=== PATIENT | male | born 1985 | race African-American/Black ===

== ENCOUNTER 2018-02-21 20:05 | Inpatient (IN) | payer OTHER ==
[~2018-02-21] VITALS: Ht 180.3 cm; Wt 191.0 kg
[~2018-02-21 20:05] MED LIST: AMLO10TA2 PO; CARV25TA; FURO1TAB60 PO; NALOXONE HCL 0.4 MG/ML AMP IV PUSH PRN; SODIUM CHLORIDE 0.9% FLUSH 10 ML FLUSH IV FLUSH PRN
[2018-02-21] MEDS: SODIUM CHLORIDE 0.9% FLUSH 10 ML FLUSH IV FLUSH SCH (20:48)
[2018-02-21 21:00] VITALS: BP 163/110; PULSE 103; RESP 21; TEMP 98.3; O2SAT 95
[2018-02-21] MEDS ORDERED: RESP: ALBUTEROL 2.5 MG/IPRATROPIUM 0.5 MG NEB (PRN) NEB (21:15)
[2018-02-21 22:00] VITALS: PULSE 104
[2018-02-21] MEDS ORDERED: AZITHROMYCIN INJ 500 MG in SODIUM CHLOR 0.9% 250 ML INJ 250 ML IV SCH (22:00)
[2018-02-21] MEDS ORDERED: cefTRIAXone INJ 1,000 MG in SODIUM CHLORIDE 0.9% INJ 100 ML IV SCH (23:00)
[2018-02-21] MEDS ORDERED: NITROGLYCERIN 0.4 MG SL 25 TABS/BTL SL PRN (23:30)
[2018-02-21] MEDS: RESP: ALBUTEROL 2.5 MG/IPRATROPIUM 0.5 MG NEB (SCH) NEB (23:30)
[2018-02-21] MEDS ORDERED: guaiFENesin/DEXTROMETHORPHAN 200 MG/20 MG/10 ML CUP PO PRN (23:30)
[2018-02-21] MEDS ORDERED: MORPHINE SULFATE 2 MG/ML SYRINGE IV PUSH PRN (23:30)
[2018-02-21] MEDS ORDERED: POTASSIUM CHLORIDE 20 MEQ CONTROLLED RELEASE TAB PO ONE (23:30)
--- NOTE | 2018-02-21 23:31 | HHI.HP ---
[facility] No Primary Care Physician Admission Diagnosis Bilateral pneumonia and mild CHF exacerbation Diagnoses: (1) Bilateral pneumonia (2) Acute CHF (3) Hypokalemia Chief Complaint: Progressively worsening shortness of breath and chest pain Travel History International Travel<30 Days: No Contact w/Intl Traveler <30 Da: No History of Present Illness Mr. Hardy is a pleasant 32-year-old male with a history of hypertension and congestive heart failure who presented to the emergency room and [place] complaining of shortness of breath. Chest x-ray showed bilateral lung opacities with moderate to severe cardiomegaly and the patient was treated for congestive heart failure and transferred to [facility] for hospitalist admission and medical management. Upon personal review of chest x- ray with Dr. Lombardo, we feel it is highly suspicious for bilateral pneumonia. The patient is seen in his hospital room. He describes a history of cold symptoms for the past 3 days accompanied with tactile fever on day 1. He reports he has been having a severe cough with thick yellow sputum production. He has orthopnea with inability to breathe when laying flat. He has had inability to sleep for the past 3 nights. He has had intermittent nasal congestion. He is also complaining of intermittent chest pressure that is located in the center of his chest and accompanied by diaphoresis and shortness of breath. He denies any associated nausea, vomiting, or palpitations. The chest pain starts with ambulation and usually resolves with rest. Review of Systems Except as stated in HPI: all other systems reviewed are Neg Past Family Social History Past Medical History Hypertension Congestive heart failure with last echocardiogram done by Dr. Garcia his outpatient mechanical designer about 2-3 months ago Denies diabetes mellitus, coronary artery disease, atrial fibrillation, COPD, asthma, liver problems, kidney problems, DVT, PE, CVA, seizures, thyroid dysfunction .. Past Surgical History Denies ever having surgery . Reported Medications Reported Meds & Active Scripts Active Reported Carvedilol 25 Mg Tab 25 Mg BID Lasix (Furosemide) 40 Mg Tab 40 Mg PO DAILY Amlodipine (Amlodipine Besylate) 10 Mg Tab 10 Mg PO DAILY , Allergies: Coded Allergies: No Known Allergies (Unverified , 02/21/18) Family History Multiple family members with hypertension, no family members with heart problems . Social History Tobacco: Quit smoking in 2010 but only smoked for about 2-3 years occasionally and socially Alcohol: Denies Illicit Drugs: Denies . Physical Exam Vital Signs Vital Signs Date Time Temp Pulse Resp B/P (MAP) Pulse Ox O2 Delivery O2 Flow Rate FiO2 02/21/18 21:00 98.3 103 21 163/110 (127) 95 Physical Exam CONSTITUTIONAL: This is a morbidly obese male patient, in no acute distress. INTEGUMENTARY: No rashes, ecchymoses or lesions. Cool and dry. HEAD: Atraumatic. Normocephalic. EYES: No scleral icterus. No injection or drainage. ENT: Nose without bleeding, purulent drainage. NECK: Trachea midline. No JVD or lymphadenopathy. CARDIOVASCULAR: Regular rate and rhythm with S3 gallop without murmurs or rubs. RESPIRATORY: Right lung sounds with diminished air exchange, left lower lobe diminished as well. No wheezes, rales, or rhonchi. The patient is not using any accessory muscles for breathing. GASTROINTESTINAL: Abdomen soft, non-tender, nondistended. No guarding. MUSCULOSKELETAL: Extremities without clubbing, cyanosis, or edema. No calf tenderness. NEUROLOGICAL: Awake and alert. Motor and sensory grossly within normal limits. Normal speech. . Laboratory Laboratory Tests Test 02/21/18 15:00 02/21/18 15:10 Blood Gas Puncture Site RT RADIAL Blood Gas HCO3 27 mmol/L Bedside Blood Gas Base Excess (LAB) 3.0 mmol/L Blood Gas Oxygen Saturation 94 % Arterial Blood pH 7.44 Arterial Blood Partial Pressure CO2 40 mmHG Arterial Blood Partial Pressure O2 70 mmHG Arterial Blood Oxygen Content 28.0 Vol % Oxygen Delivery Device NASAL CANNULA Blood Gas Liter Flow 2 L/M White Blood Count 12.7 TH/MM3 Red Blood Count 4.75 MIL/MM3 Hemoglobin 12.2 GM/DL Hematocrit 37.8 % Mean Corpuscular Volume 79.6 FL Mean Corpuscular Hemoglobin 25.7 PG Mean Corpuscular Hemoglobin Concent 32.3 % Red Cell Distribution Width 15.1 % Platelet Count 376 TH/MM3 Mean Platelet Volume 11.2 FL Immature Granulocyte % (Auto) 0.6 % Neutrophils (%) (Auto) 79.3 % Lymphocytes (%) (Auto) 13.9 % Monocytes (%) (Auto) 5.1 % Eosinophils (%) (Auto) 0.8 % Basophils (%) (Auto) 0.3 % Immature Granulocyte # (Auto) 0.1 TH/MM3 Neutrophils # (Auto) 10.1 TH/MM3 Lymphocytes # (Auto) 1.8 TH/MM3 Monocytes # (Auto) 0.7 TH/MM3 Eosinophils # (Auto) 0.1 TH/MM3 Basophils # (Auto) 0.0 TH/MM3 CBC Comment DIFF FINAL Differential Comment Prothrombin Time 12.1 SEC Prothromb Time International Ratio 1.2 RATIO Activated Partial Thromboplast Time 24.7 SEC Blood Urea Nitrogen 12 MG/DL Creatinine 1.00 MG/DL Random Glucose 119 MG/DL Total Protein 7.5 GM/DL Albumin 3.5 GM/DL Calcium Level 8.6 MG/DL Magnesium Level 1.9 MG/DL Alkaline Phosphatase 80 U/L Aspartate Amino Transf (AST/SGOT) 19 U/L Alanine Aminotransferase (ALT/SGPT) 17 U/L Total Bilirubin 2.3 MG/DL Sodium Level 141 MEQ/L Potassium Level 3.0 MEQ/L Chloride Level 106 MEQ/L Carbon Dioxide Level 27.0 MEQ/L Anion Gap 8 MEQ/L Estimat Glomerular Filtration Rate 106 ML/MIN Total Creatine Kinase 256 U/L Creatine Kinase MB 2.0 NG/ML Troponin I LESS THAN 0.02 NG/ML B-Type Natriuretic Peptide 382 PG/ML . Imaging Last Impressions Chest X-Ray 02/21/18 1441 Signed Impressions: Service Date/Time: February 16:29 - CONCLUSION: Moderately severe cardiomegaly. Diffuse airspace opacities throughout the right lung and in the left lower lung. Bertram Cannon MD . Caprini VTE Risk Assessment Caprini VTE Risk Assessment: No/Low Risk (score <= 1) Caprini Risk Assessment Model Point Value = 1 Point Value = 2 Point Value = 3 Point Value = 5 Age 41-60 Minor surgery BMI > 25 kg/m2 Swollen legs Varicose veins or History of unexplained or recurrent spontaneous Oral contraceptives or hormone replacement Sepsis (< 1 month) Serious lung disease, including pneumonia (< 1 month) Abnormal pulmonary function Acute myocardial infarction Congestive heart failure (< 1 month) History of inflammatory bowel disease Medical patient at bed rest Age 61-74 Arthroscopic surgery Major open surgery (> 45 min) Laparoscopic surgery (> 45 min) Malignancy Confined to bed (> 72 hours) Immobilizing plaster cast Central venous access Age >= 75 History of VTE Family history of VTE Factor V Leiden Prothrombin [id number] Lupus anticoagulant Anticardiolipin antibodies Elevated serum homocysteine Heparin-induced thrombocytopenia Other congenital or acquired thrombophilia Stroke (< 1 month) Elective arthroplasty Hip, pelvis, or leg fracture Acute spinal cord injury (< 1 month) Prophylaxis Regimen Total Risk Factor Score Risk Level Prophylaxis Regimen 0-1 Low Early ambulation 2 Moderate Order ONE of the following: *Sequential Compression Device (SCD) *Heparin 5000 units SQ BID 3-4 Higher Order ONE of the following medications: *Heparin 5000 units SQ TID *Enoxaparin/Lovenox 40 mg SQ daily (WT < 150 kg, CrCl > 30 mL/min) *Enoxaparin/Lovenox 30 mg SQ daily (WT < 150 kg, CrCl > 10-29 mL/min) *Enoxaparin/Lovenox 30 mg SQ BID (WT < 150 kg, CrCl > 30 mL/min) AND/OR *Sequential Compression Device (SCD) 5 or more Highest Order ONE of the following medications: *Heparin 5000 units SQ TID (Preferred with Epidurals) *Enoxaparin/Lovenox 40 mg SQ daily (WT < 150 kg, CrCl > 30 mL/min) *Enoxaparin/Lovenox 30 mg SQ daily (WT < 150 kg, CrCl > 10-29 mL/min) *Enoxaparin/Lovenox 30 mg SQ BID (WT < 150 kg, CrCl > 30 mL/min) AND *Sequential Compression Device (SCD) Assessment and Plan Assessment and Plan Bilateral pneumonia -Antibiotics: Azithromycin IV and ceftriaxone IV -Duo nebulizers every 6 hours ATC and every 4 hours as needed for shortness of breath and wheezing -Leukocytosis with left shift -repeat CBC and monitor Atypical chest pain -Serial cardiac enzymes and EKGs to rule out ACS -Nitroglycerin 0.4 mg sublingual every 5 minutes as needed chest pain 3 doses Congestive heart failure, mild exacerbation -BNP 382, chest x-ray looks more consistent with pneumonia than congestive heart failure but with elevation in BNP, symptoms of orthopnea and chest pain, and history of CHF with moderately severe cardiomegaly -will also treat for CHF -Lasix 20 mg IV twice daily Hypokalemia -Initial potassium was 3.0, replaced p.o. and [place] with 40 mEq by mouth -We will give additional 40 mEq by mouth given Lasix administered in [place] also -Potassium 10 mEq p.o. twice daily -Repeat BMP in a.m. and follow potassium results supplement as needed Hypertension -Resume home medications -Monitor trends in blood pressure and adjust treatments accordingly Hyperbilirubinemia -Initial total bilirubin 2.3 -We will repeat in a.m. -if remains elevated, patient may need outpatient follow -up for gallbladder imaging Mild anemia; microcytic and hypochromic -Initial hemoglobin 12.2 and hematocrit 37.8 -We will check iron profile and monitor CBC DVT prophylaxis -Heparin 5000 units subq every 12 hours . Discussed Condition With Patient, RN, and Dr. Lombardo . Physician Certification 2 Midnight Certification Type: Admission for Inpatient Services Order for Inpatient Services The services are ordered in accordance with Medicare regulations or non- Medicare payer requirements, as applicable. In the case of services not specified as inpatient-only, they are appropriately provided as inpatient services in accordance with the 2-midnight benchmark. Estimated LOS (days): 3 days is the estimated time the patient will need to remain in the hospital, assuming treatment plan goals are met and no additional complications. Post-Hospital Plan: Home Ivett Garcia Feb 21, 2018 23:31
[2018-02-21] MEDS ORDERED: ACETAMINOPHEN 325 MG TAB PO ONE (23:45)
[2018-02-21 23:51] VITALS: PULSE 110
[2018-02-22] VITALS (7 sets, daily range): BP systolic 115–182; BP diastolic 72–104; PULSE 86–106; RESP 18–21; TEMP 97.5–98.8; O2SAT 93–99
[2018-02-22] MEDS: CARVEDILOL 12.5 MG TAB PO SCH ×2 (00:19→09:23)
[2018-02-22] MEDS: RESP: ALBUTEROL 2.5 MG/IPRATROPIUM 0.5 MG NEB (SCH) NEB ×2 (02:11→08:25)
[2018-02-22 03:44] LABS: % SATURATION IRON PROFILE 6.7 % (20-50); BICARBONATE 28.3 MEQ/L (21.0-32.0); BLOOD UREA NITROGEN 12 MG/DL (7-18); CALCIUM 8.1 MG/DL (8.5-10.1); CHLORIDE 105 MEQ/L (98-107); CREATININE 1.03 MG/DL (0.60-1.30); GLOMERULAR FILTRATION RATE 103 ML/MIN (>89); GLUCOSE,RANDOM 136 MG/DL (74-106); IRON (FE) 26 MCG/DL (65-175); SODIUM (NA) 140 MEQ/L (136-145); TOTAL IRON BINDING CAPACITY 388 MCG/DL (250-450)
[2018-02-22 03:48] LABS: TROPONIN I 0.02 NG/ML (0.02-0.05)
--- NOTE | 2018-02-22 05:31 | EKG ---
Date Performed: 02/21/2018 Time Performed: 21:30:31 PTAGE: 32 years EKG: SINUS TACHYCARDIA. NONSPECIFIC INTRAVENTRICULAR CONDUCTION DELAY POOR R WAVE PROGRESSION HI GH LATERAL ST/T ABNORMALITY, CONSIDER ISCHEMIA LEFT AXIS DEVIATION ABNORMAL ECG NO PREVIOUS TRACING DOCTOR: Jez Ricketts Interpretating Date/Time 02/22/2018 05:29:42
[2018-02-22] MEDS ORDERED: POTASSIUM CHLORIDE 10 MEQ CONTROLLED RELEASE TAB PO ONE (08:15)
--- NOTE | 2018-02-22 08:47 | EKG ---
Date Performed: 02/22/2018 Time Performed: 03:12:40 PTAGE: 32 years EKG: Sinus rhythm Possible left atrial abnormality Lateral T wave changes may be due to myocardial ischemia Nonspecifi c intraventricular conduction delay Abnormal ECG PREVIOUS TRACING : 02/21/2018 21.30 No significant change from previous tracing noted. DOCTOR: Jez Ricketts Interpretating Date/Time 02/22/2018 08:45:46
[2018-02-22] MEDS: SODIUM CHLORIDE 0.9% FLUSH 10 ML FLUSH IV FLUSH SCH (09:00)
[2018-02-22] MEDS ORDERED: POTASSIUM CHLORIDE 10 MEQ CONTROLLED RELEASE TAB PO SCH (09:00)
[2018-02-22] MEDS ORDERED: POTASSIUM CHLORIDE 20 MEQ CONTROLLED RELEASE TAB PO SCH (09:00)
[2018-02-22] MEDS ORDERED: HEPARIN SODIUM - SQ 10,000 UNITS/ML VIAL SQ SCH (09:00)
[2018-02-22] MEDS ORDERED: FUROSEMIDE 40 MG/4 ML VIAL IV PUSH SCH (09:00)
[2018-02-22] MEDS ORDERED: FUROSEMIDE 20 MG/2 ML VIAL IV PUSH SCH (09:00)
[2018-02-22] MEDS ORDERED: FURO1TAB62 PO (10:37)
[2018-02-22] MEDS ORDERED: LEVA750T9 PO (10:37)
[2018-02-22] MEDS ORDERED: VENTAER INH (10:37)
[2018-02-22] MEDS ORDERED: LACTTAB8 PO (10:37)
[2018-02-22] MEDS ORDERED: NORC5TAB PO (10:37)
--- NOTE | 2018-02-22 13:30 | ECHRPT ---
Indication: CHF CONCLUSIONS The left ventricular systolic function is severely reduced with an estimated ejection fraction less than 20%. Severely dilated left ventricle. Mild concentric left ventricular hypertrophy. The right ventricle is mildly dilated. The left atrial size is moderately dilated. Moderate thickening of the mitral valve leaflets. Moderate mitral valve regurgitation. There is moderate tricuspid regurgitation. The estimated pulmonary arterial pressure is 47.5 mmHg. Moderate pulmonary valve regurgitation. There is a small pericardial effusion present. BP: / HR: 89 Rhythm: Sinus MEASUREMENTS (Male / Female) Normal Values Technical Quality:Technically difficult study 2D ECHO LV Diastolic Diameter PLAX 7.8 cm 4.2 - 5.9 / 3.9 - 5.3 cm LV Systolic Diameter PLAX 7.1 cm IVS Diastolic Thickness 1.1 cm 0.6 - 1.0 / 0.6 - 0.9 cm LVPW Diastolic Thickness 1.1 cm 0.6 - 1.0 / 0.6 - 0.9 cm LV Relative Wall Thickness 0.3 RV Internal Dim ED PLAX 4.2 cm LVOT Diameter 2.7 cm LA Systolic Diameter LX 5.3 cm 3.0 - 4.0 / 2.7 - 3.8 cm M-MODE Aortic Root Diameter MM 3.4 cm LA Systolic Diameter MM 5.1 cm LA Ao Ratio MM 1.5 MV E Point Septal Separation 3.2 cm AV Cusp Separation MM 2.4 cm DOPPLER AV Peak Velocity 68.2 cm/s AV Peak Gradient 1.9 mmHg LVOT Peak Velocity 62.2 cm/s LVOT Peak Gradient 1.5 mmHg AV Area Cont Eq pk 5.2 cm MV Area PHT 5.2 cm Mitral E Point Velocity 109.0 cm/s Mitral A Point Velocity 44.4 cm/s Mitral E to A Ratio 2.5 LV E' Lateral Velocity 11.3 cm/s Mitral E to LV E' Lateral Ratio 9.6 TR Peak Velocity 306.0 cm/s TR Peak Gradient 37.5 mmHg Right Atrial Pressure 10.0 mmHg Pulmonary Artery Systolic Pressu 47.5 mmHg Right Ventricular Systolic Press 47.5 mmHg FINDINGS LEFT VENTRICLE The left ventricular systolic function is severely reduced with an estimated ejection fraction less than 20%. Severely dilated left ventricle. Mild concentric left ventricular hypertrophy. RIGHT VENTRICLE The right ventricle is mildly dilated. LEFT ATRIUM The left atrial size is moderately dilated. RIGHT ATRIUM The right atrial size is normal. ATRIAL SEPTUM Normal atrial septal thickness without atrial level shunting by limited color doppler interrogation. AORTA The aortic root and proximal ascending aorta are normal in size on limited imaging. MITRAL VALVE Moderate thickening of the mitral valve leaflets. Moderate mitral valve regurgitation. AORTIC VALVE Trileaflet aortic valve. No aortic valve stenosis or regurgitation. TRICUSPID VALVE Structurally normal tricuspid valve. There is moderate tricuspid regurgitation. The estimated pulmonary arterial pressure is 47.5 mmHg. PULMONARY VALVE Moderate pulmonary valve regurgitation. VESSELS The inferior vena cava is dilated. PERICARDIUM There is a small pericardial effusion present. Donell Wells MD, FACC (Electronically Signed) Final Date:22 February 2018 13:30
[2018-02-22 13:46] LABS: AUTOMATED NEUTROPHIL # 8.7 TH/MM3 (1.8-7.7); BASOPHIL # 0.1 TH/MM3 (0-0.2); BASOPHIL % 0.5 % (0.0-2.0); EOSINOPHIL # 0.1 TH/MM3 (0-0.4); EOSINOPHIL % 0.9 % (0.0-4.0); HEMATOCRIT 37.4 % (39.0-51.0); HEMOGLOBIN 12.2 GM/DL (13.0-17.0); LYMPH % 18.6 % (9.0-44.0); LYMPHOCYTE # 2.2 TH/MM3 (1.0-4.8); MEAN CORPUSCULAR HEMOGLOBIN 25.8 PG (27.0-34.0); MEAN CORPUSCULAR HGB CONC 32.6 % (32.0-36.0); MEAN PLATELET VOLUME 8.8 FL (7.0-11.0); MONO % 4.7 % (0.0-8.0); MONOCYTE # 0.5 TH/MM3 (0-0.9); NEUT % 75.3 % (16.0-70.0); PLATELET COUNT 327 TH/MM3 (150-450); RED BLOOD COUNT 4.74 MIL/MM3 (4.50-5.90); RED CELL DISTRIBUTION WIDTH 16.5 % (11.6-17.2); WHITE BLOOD COUNT 11.6 TH/MM3 (4.0-11.0)
[2018-02-22 14:15] LABS: TROPONIN I LESS THAN 0.02 NG/ML (0.02-0.05)
--- NOTE | 2018-02-22 14:39 | HHI.DS ---
Discharge Summary Admission Date Feb 21, 2018 at 20:15 Discharge Date: Feb 22, 2018 Admitting Diagnosis Bilateral pneumonia and mild CHF exacerbation (1) Bilateral pneumonia ICD Code: J18.9 - Pneumonia, unspecified organism Diagnosis: Principal (2) Acute CHF ICD Code: I50.9 - Heart failure, unspecified Diagnosis: Principal Status: Acute (3) Hypokalemia ICD Code: E87.6 - Hypokalemia Diagnosis: Secondary Status: Acute Procedures None Brief History - From Admission Mr. Hardy is a pleasant 32-year-old male with a history of hypertension and congestive heart failure who presented to the emergency room and [place] complaining of shortness of breath. Chest x-ray showed bilateral lung opacities with moderate to severe cardiomegaly and the patient was treated for congestive heart failure and transferred to [facility] for hospitalist admission and medical management. Upon personal review of chest x- ray with Dr. Lombardo, we feel it is highly suspicious for bilateral pneumonia. The patient is seen in his hospital room. He describes a history of cold symptoms for the past 3 days accompanied with tactile fever on day 1. He reports he has been having a severe cough with thick yellow sputum production. He has orthopnea with inability to breathe when laying flat. He has had inability to sleep for the past 3 nights. He has had intermittent nasal congestion. He is also complaining of intermittent chest pressure that is located in the center of his chest and accompanied by diaphoresis and shortness of breath. He denies any associated nausea, vomiting, or palpitations. The chest pain starts with ambulation and usually resolves with rest. CBC/BMP: 02/22/18 1217 02/22/18 0309 Significant Findings Laboratory Tests Test 02/22/18 03:09 02/22/18 12:17 Random Glucose 136 MG/DL (74-106) Calcium Level 8.1 MG/DL (8.5-10.1) Potassium Level 3.1 MEQ/L (3.5-5.1) Iron Level 26 MCG/DL (65-175) Percent Iron Saturation 6.7 % (20-50) White Blood Count 11.6 TH/MM3 (4.0-11.0) Hemoglobin 12.2 GM/DL (13.0-17.0) Hematocrit 37.4 % (39.0-51.0) Mean Corpuscular Volume 79.0 FL (80.0-100.0) Mean Corpuscular Hemoglobin 25.8 PG (27.0-34.0) Neutrophils (%) (Auto) 75.3 % (16.0-70.0) Neutrophils # (Auto) 8.7 TH/MM3 (1.8-7.7) Troponin I LESS THAN 0.02 NG/ML Hospital Course Mr. Hardy is a 32-year-old male. He has underlying cardiomyopathy with CHF. He was admitted secondary to respiratory distress which was found to be related to bilateral pneumonia and congestive heart failure exacerbation. CHF exacerbation was easily controlled overnight with additional diuretics. Patient 's respiratory status is improved, he is no longer hypoxic. The pneumonia acted as a trigger for his CHF exacerbation. She is discharged on antibiotics and an additional Lasix dosing over the next 3 days. Medically stable for discharge home today. Pt Condition on Discharge: Stable Discharge Disposition: Discharge Home Discharge Time: <= 30 minutes Discharge Instructions DIET: Follow Instructions for: Heart Healthy Diet Activities you can perform: Regular-No Restrictions Follow up Referrals: Cardiology - 2 Weeks Cardiology PCP Follow-up - 2 Weeks PCP Follow-up @ [facility] New Medications: Albuterol 18 GM Inh (Ventolin Hfa 18 GM Inh) 90 Mcg/Act Aer 2 PUFF INH Q4H PRN for SHORTNESS OF BREATH, #1 INHALER 0 Refills Furosemide (Lasix) 20 Mg Tab 20 MG PO DAILY PRN for Fluid Excess, #30 TAB 0 Refills Use this Daily till 02/26/18 Then use this as needed, for any fluid excess. Hydrocodone-Acetaminophen ([place]) 5 Mg-325 Mg Tab 1 TAB PO Q6H PRN for PAIN, #30 TAB 0 Refills Lactobacillus Acidophilus (Lactobacillus Acidophilus) 1 Billion Cell Tab 1 TAB PO TIDAC for Nutritional Supplement, #30 TAB 0 Refills Levofloxacin (Levaquin) 750 Mg Tablet 750 MG PO DAILY for Infection, #7 TAB 0 Refills Continued Medications: Amlodipine (Amlodipine) 10 Mg Tab 10 MG PO DAILY for Blood Pressure Management, #30 TAB 0 Refills Carvedilol (Carvedilol) 25 Mg Tab 25 MG BID, #60 TAB 0 Refills Furosemide (Lasix) 40 Mg Tab 40 MG PO DAILY, #30 TAB 0 Refills Pipe Odom MD Feb 22, 2018 14:38
== END 2018-02-22 16:27 | disposition home or self-care (01) | DRG 291 ==
LOC: NEDDLT 20:05 → N04B 20:15
PROVIDERS: ADMIT Hospitalist; ATTEND Hospitalist
DX: I11.0 Hypertensive heart disease with heart failure (principal); I50.23 Acute on chronic systolic (congestive) heart failure; J18.9 Pneumonia, unspecified organism; I42.9 Cardiomyopathy, unspecified; Z68.43 Body mass index [BMI] 50.0-59.9, adult; E66.01 Morbid (severe) obesity due to excess calories; E87.6 Hypokalemia; D64.9 Anemia, unspecified; R07.89 Other chest pain; E80.7 Disorder of bilirubin metabolism, unspecified; Z82.49 Family history of ischemic heart disease and other diseases of the circulatory system; Z87.891 Personal history of nicotine dependence
CPT/HCPCS: 36600; 71045; 76937; 80048; 80053; 82550; 82552; 82805; 83540; 83550; 83735; 83880; 84484; 85025; 85610; 85730; 93005; 93306; 94640; 94664; 96374; J0456; J0696; J1644; J1940; J7050

== ENCOUNTER 2018-04-16 20:57 | Observation (INO) | payer SELFPAY ==
[~2018-04-16 20:57] MED LIST changes: -FURO1TAB60 PO; +FURO1TAB62 PO; -NALOXONE HCL 0.4 MG/ML AMP IV PUSH PRN; -SODIUM CHLORIDE 0.9% FLUSH 10 ML FLUSH IV FLUSH PRN; +TORS10TA2 PO
[2018-04-16 21:22] VITALS: BP 138/88; PULSE 102; RESP 20; TEMP 97.1; O2SAT 93
[2018-04-16] MEDS ORDERED: SODIUM CHLORIDE 0.9% FLUSH 10 ML FLUSH IV FLUSH PRN (22:15)
[2018-04-16] MEDS: CARVEDILOL 12.5 MG TAB PO SCH (22:31)
[2018-04-16] MEDS: POTASSIUM CHLORIDE 10 MEQ CONTROLLED RELEASE TAB PO SCH (22:31)
[2018-04-16] MEDS: FUROSEMIDE 20 MG/2 ML VIAL IV SCH (22:31)
[2018-04-16 23:00] VITALS: O2SAT 95
[2018-04-17] VITALS (9 sets, daily range): BP systolic 123–137; BP diastolic 69–90; PULSE 78–100; RESP 18–20; TEMP 96–97.5; O2SAT 93–97
[2018-04-17] MEDS: CARVEDILOL 12.5 MG TAB PO SCH ×2 (08:12→22:47)
[2018-04-17] MEDS: POTASSIUM CHLORIDE 10 MEQ CONTROLLED RELEASE TAB PO SCH ×2 (08:12→22:47)
[2018-04-17] MEDS: FUROSEMIDE 20 MG/2 ML VIAL IV SCH ×2 (08:13→17:23)
[2018-04-17] MEDS: SODIUM CHLORIDE 0.9% FLUSH 10 ML FLUSH IV FLUSH SCH ×2 (08:15→20:25)
[2018-04-17] MEDS ORDERED: TORSEMIDE 5 MG TAB PO SCH (09:00)
--- NOTE | 2018-04-17 11:56 | HHI.HP ---
[facility] Primary Care Physician No Primary Care Physician Admission Diagnosis Diagnoses: (1) CHF exacerbation Chief Complaint: Shortness of breath Bilateral lower extremity edema Travel History International Travel<30 Days: No Contact w/Intl Traveler <30 Da: No Traveled to Known Affected Are: No History of Present Illness Written by Anastacia Gipson, acting as scribe for Dr. Raya on 04/17/18 at 11:55. This is a pleasant 32-year-old male patient with a known medical history of hypertension and CHF and cardiomyopathy who presented to the ED with complaints of shortness of breath and worsening bilateral lower extremity edema. Patient states that he ran out of his diuretic a week ago and his symptoms started a few days after. Patient states he has shortness of breath especially with exertion. He is also unable to lay flat without any shortness of breath. Patient does state his bilateral lower extremities have increased in size and also complains of bloating in his abdomen. Patient denies any chest pain, fever , chills, abdominal pain, nausea, vomiting or dysuria. Patient was recently admitted last month with bilateral pneumonia, patient does admit that the symptoms have improved he did finish his course of antibiotics. Patient does not have a primary care physician. He follows up in the clinic as needed. He does state that he has 30 more days for his insurance to approve. An echocardiogram was done in early February showing cardiomyopathy with EF of less than 20%. Review of Systems Constitutional: COMPLAINS OF: Fatigue, DENIES: Diaphoretic episodes, Fever, Chills, Dizziness Eyes: DENIES: Diplopia Respiratory: COMPLAINS OF: Shortness of breath, DENIES: Cough, Sputum production Cardiovascular: COMPLAINS OF: Dyspnea on Exertion, Lower Extremity Edema, DENIES: Chest pain, Palpitations Gastrointestinal: DENIES: Abdominal pain, Bloody stools, Constipation, Diarrhea , Nausea Musculoskeletal: DENIES: Joint pain Hematologic/lymphatic: DENIES: Bruising Immunologic/allergic: DENIES: Eczema Neurologic: DENIES: Abnormal gait Psychiatric: DENIES: Anxiety Except as stated in HPI: all other systems reviewed are Neg Past Family Social History Past Medical History Hypertension CHF Past Surgical History Denies any prior surgery. Reported Medications Active Torsemide 10 Mg Tab 10 Mg PO BID Lasix (Furosemide) 20 Mg Tab 20 Mg PO DAILY PRN Use this Daily till 02/26/18 Then use this as needed, for any fluid excess. Reported Carvedilol 25 Mg Tab 25 Mg BID Amlodipine (Amlodipine Besylate) 10 Mg Tab 10 Mg PO DAILY Allergies: Coded Allergies: No Known Allergies (Unverified , 04/11/18) Active Ordered Medications Current Medications Medications (Trade) Dose Ordered Sig/Brittany Route Start Time Stop Time Status Last Admin (NS Flush) 2 ml UNSCH PRN IV FLUSH 04/16/18 22:15 (NS Flush) 2 ml BID IV FLUSH 04/17/18 09:00 04/17/18 08:15 (Lasix Inj) 20 mg BID@18 IV 04/16/18 22:15 04/17/18 08:13 (KCl) 10 meq BID PO 04/16/18 22:15 04/17/18 08:12 (Norvasc) 10 mg DAILY PO 04/17/18 09:00 04/17/18 08:11 (Coreg) 25 mg BID PO 04/16/18 22:15 04/17/18 08:12 (Demadex) 10 mg BID PO 04/17/18 09:00 04/17/18 08:50 Family History Multiple family members with hypertension, no family members with heart problems Social History Quit smoking in 2010 but only smoked for about 2-3 years occasionally and socially. Denies any alcohol or illicit drug use. Physical Exam Vital Signs Vital Signs Date Time Temp Pulse Resp B/P (MAP) Pulse Ox O2 Delivery O2 Flow Rate FiO2 04/17/18 11:43 96.7 85 18 129/80 (96) 95 04/17/18 07:50 97.5 78 18 131/90 (104) 97 04/17/18 07:37 93 21 04/17/18 04:00 96.0 88 18 133/87 (102) 95 04/17/18 00:00 97.4 100 20 137/76 (96) 97 04/16/18 23:00 95 21 04/16/18 21:22 97.1 102 20 138/88 (105) 93 Physical Exam GENERAL: Well-developed, overweight obese male patient in NAD. SKIN: Warm and dry. No rash. HEAD: Normocephalic. Atraumatic. EYES: Pupils equal and round. No scleral icterus. No injection or drainage. ENT: No nasal bleeding or discharge. Mucous membranes pink and moist. NECK: Supple. Trachea midline. CARDIOVASCULAR: Regular rate and rhythm. S1, S2 noted. No murmur appreciated. RESPIRATORY: No accessory muscle use. Clear to auscultation. Breath sounds equal bilaterally. GASTROINTESTINAL: Abdomen soft, non-tender, nondistended. Normoactive bowel sounds x4. MUSCULOSKELETAL: No obvious deformities. Extremities without clubbing, cyanosis. Bilateral lower extremity 1+ edema. NEUROLOGICAL: Awake and alert. No obvious cranial nerve deficits. Motor grossly within normal limits. 5/5 muscle strength in bilateral upper and lower extremities. Normal speech. PSYCHIATRIC: Appropriate mood and affect; insight and judgment normal. Septic Shock Reassessment Septic shock perfusion: reassessment completed Caprini VTE Risk Assessment Caprini VTE Risk Assessment: No/Low Risk (score <= 1) Caprini Risk Assessment Model Point Value = 1 Point Value = 2 Point Value = 3 Point Value = 5 Age 41-60 Minor surgery BMI > 25 kg/m2 Swollen legs Varicose veins or History of unexplained or recurrent spontaneous Oral contraceptives or hormone replacement Sepsis (< 1 month) Serious lung disease, including pneumonia (< 1 month) Abnormal pulmonary function Acute myocardial infarction Congestive heart failure (< 1 month) History of inflammatory bowel disease Medical patient at bed rest Age 61-74 Arthroscopic surgery Major open surgery (> 45 min) Laparoscopic surgery (> 45 min) Malignancy Confined to bed (> 72 hours) Immobilizing plaster cast Central venous access Age >= 75 History of VTE Family history of VTE Factor V Leiden Prothrombin [id number] Lupus anticoagulant Anticardiolipin antibodies Elevated serum homocysteine Heparin-induced thrombocytopenia Other congenital or acquired thrombophilia Stroke (< 1 month) Elective arthroplasty Hip, pelvis, or leg fracture Acute spinal cord injury (< 1 month) Prophylaxis Regimen Total Risk Factor Score Risk Level Prophylaxis Regimen 0-1 Low Early ambulation 2 Moderate Order ONE of the following: *Sequential Compression Device (SCD) *Heparin 5000 units SQ BID 3-4 Higher Order ONE of the following medications: *Heparin 5000 units SQ TID *Enoxaparin/Lovenox 40 mg SQ daily (WT < 150 kg, CrCl > 30 mL/min) *Enoxaparin/Lovenox 30 mg SQ daily (WT < 150 kg, CrCl > 10-29 mL/min) *Enoxaparin/Lovenox 30 mg SQ BID (WT < 150 kg, CrCl > 30 mL/min) AND/OR *Sequential Compression Device (SCD) 5 or more Highest Order ONE of the following medications: *Heparin 5000 units SQ TID (Preferred with Epidurals) *Enoxaparin/Lovenox 40 mg SQ daily (WT < 150 kg, CrCl > 30 mL/min) *Enoxaparin/Lovenox 30 mg SQ daily (WT < 150 kg, CrCl > 10-29 mL/min) *Enoxaparin/Lovenox 30 mg SQ BID (WT < 150 kg, CrCl > 30 mL/min) AND *Sequential Compression Device (SCD) Assessment and Plan Problem List: (1) CHF exacerbation ICD Code: I50.9 - Heart failure, unspecified (2) Cardiomyopathy ICD Code: I42.9 - Cardiomyopathy, unspecified Assessment and Plan This is a pleasant 32-year-old male patient with a known medical history of hypertension and CHF and cardiomyopathy who presented to the ED with complaints of shortness of breath and worsening bilateral lower extremity edema. Patient states that he ran out of his diuretic a week ago and his symptoms started a few days after. Dilated systolic congestive heart failure in exacerbation Ischemic cardiomyopathy - Last echocardiogram showing EF less than 20% with left ventricular systolic function with severely reduced and severe dilated left ventricle. - Chest x-ray showing cardiomegaly. Possible pericardial effusion. Await echo. Patient symptoms have improved significantly. - Patient was placed on torsemide 10 mg twice daily at home, patient has ran out of this for over a week now. Will place on hold for now. - Patient placed on Lasix 20 mg twice daily. Will continue. Continue potassium supplement. - Continue home carvedilol and Norvasc. - Consult cardiology, input and recommendations pending. - Will obtain limited 2D echo to follow-up on cardiomyopathy. Pending. - Continue cardiac telemetry. Monitor for any arrhythmias. Hypokalemia: Potassium 3.4 on presentation. Will replace. Follow BMP. Iron deficiency anemia: Hemoglobin 11.9/hematocrit 37.5. High RDW. Iron studies low. Place on supplementation. Hypertension: Will continue home Norvasc. Continue to monitor blood pressure trends. DVT prophylaxis: SCDs. Ambulation. This note was transcribed by stefan Gipson. I, Dr. Sina Raya personally performed the history, physical exam, and medical decision making; and confirmed the accuracy of the information in the transcribed note. Authenticated by Dr. Sina Raya on 04/17/18 at 11:55. Code Status Full code Discussed Condition With Patient Anastacia Gipson April 17, 2018 11:56 Sina Raya MD April 17, 2018 11:56
--- NOTE | 2018-04-17 17:47 | ECHRPT ---
Indication: R/O PERICARDIAL EFFUSION CONCLUSIONS Severely dilated left ventricle. Mild concentric left ventricular hypertrophy. The left ventricular systolic function is severely reduced with an estimated ejection fraction less than 20%. There are findings consistent with dilated cardiomyopathy. The right ventricle is mild to moderately dilated. The right ventricular systoilc function is severely decreased. The left atrial size is ohwhjbsm-jp-fqwpxask dilated. The right atrial size is ucxuwpmc-ob-ffieuslo dilated. Dknx-fb-boyvtlca mitral valve regurgitation. There is mild to moderate tricuspid valve regurgitation. The estimated pulmonary arterial pressure is 47 mmHg. BP: 162 / 90 HR: 87 Rhythm: Sinus MEASUREMENTS (Male / Female) Normal Values Technical Quality:Very technically difficult study 2D ECHO LV Diastolic Diameter PLAX 8.0 cm 4.2 - 5.9 / 3.9 - 5.3 cm LV Systolic Diameter PLAX 7.4 cm IVS Diastolic Thickness 1.1 cm 0.6 - 1.0 / 0.6 - 0.9 cm LVPW Diastolic Thickness 1.1 cm 0.6 - 1.0 / 0.6 - 0.9 cm LV Relative Wall Thickness 0.3 RV Internal Dim ED PLAX 3.2 cm LVOT Diameter 2.6 cm Aortic Root Diameter 3.6 cm LA Systolic Diameter LX 5.6 cm 3.0 - 4.0 / 2.7 - 3.8 cm M-MODE AV Cusp Separation MM 1.9 cm DOPPLER AV Peak Velocity 71.7 cm/s AV Peak Gradient 2.1 mmHg AV Mean Gradient 1.0 mmHg AV Velocity Time Integral 12.8 cm LVOT Peak Velocity 34.6 cm/s LVOT Peak Gradient 0.5 mmHg LVOT Velocity Time Integral 5.6 cm AV Area Cont Eq vti 2.3 cm AV Area Cont Eq pk 2.6 cm Mitral E Point Velocity 105.0 cm/s Mitral A Point Velocity 26.2 cm/s Mitral E to A Ratio 4.0 TR Peak Velocity 304.0 cm/s TR Peak Gradient 37.0 mmHg Right Atrial Pressure 10.0 mmHg Pulmonary Artery Systolic Pressu 47.0 mmHg Right Ventricular Systolic Press 47.0 mmHg FINDINGS LEFT VENTRICLE Severely dilated left ventricle. Mild concentric left ventricular hypertrophy. The left ventricular systolic function is severely reduced with an estimated ejection fraction less than 20%. There are findings consistent with dilated cardiomyopathy. RIGHT VENTRICLE The right ventricle is mild to moderately dilated. The right ventricular systoilc function is severely decreased. LEFT ATRIUM The left atrial size is jqftrzps-yo-hjzvjtcm dilated. RIGHT ATRIUM The right atrial size is gcjxfoyo-mg-duhkmwgt dilated. MITRAL VALVE Toti-cl-uwdbjvyv mitral valve regurgitation. AORTIC VALVE Trileaflet aortic valve. No aortic valve stenosis or regurgitation. TRICUSPID VALVE There is mild to moderate tricuspid valve regurgitation. The estimated pulmonary arterial pressure is 47 mmHg. PERICARDIUM No pericardial effusion. Stu Solo MD, FACC, [facility] [place] (Electronically Signed) Final Date:17 Apr 2018 17:46
[2018-04-17] MEDS ORDERED: SPIRONOLACTONE 25 MG TAB PO ONE (19:15)
[2018-04-17] MEDS ORDERED: LISINOPRIL 5 MG TAB PO ONE (19:15)
--- NOTE | 2018-04-17 20:05 | MB ---
cc: Stu Solo MD, Arthur W MD DATE: 04/17/2018 HISTORY OF PRESENT ILLNESS: Willem is a very pleasant 32-year-old male with a history of nonischemic cardiomyopathy. He had a catheterization he says 2 or 3 years ago, which showed no significant obstructive disease. He admittedly ran out of his medicines due to not being able to afford them. He is not sure how much weight he has gained. His chief complaint is lower extremity edema, increased abdominal girth. He has mild shortness of breath at about a block of exertion. Otherwise, denies any fevers, chills, cough, GI or bleeding, PND, syncope, dizziness or chest pain. PAST MEDICAL HISTORY: As per history of present illness. He did have orthopnea. REVIEW OF SYSTEMS: Positive for orthopnea. PAST MEDICAL HISTORY: Includes hypertension, congestive heart failure. MEDICATIONS PRIOR TO ADMISSION: 1. Torsemide 10 mg b.i.d. 2. Lasix 20 mg p.r.n. 3. Coreg 25 mg b.i.d. 4. Amlodipine 10 mg daily. ALLERGIES: NONE. SOCIAL HISTORY: Quit smoking in 2010. Denies alcohol use. PHYSICAL EXAMINATION: VITAL SIGNS: Blood pressure 132/81, pulse 90, respiratory rate 18, sats 96% on room air, temperature 96.6. GENERAL: He is alert and oriented x3, in no acute distress. NECK: Supple. No JVD. No bruit. CARDIOVASCULAR: S1, S2. No murmurs, rubs or gallops. LUNGS: Notable for decreased air movement at the bases. ABDOMEN: Distended, nontender. EXTREMITIES: 2+ lower extremity edema. LABORATORY DATA: White count 11.8, hemoglobin 11.9, hematocrit 37.5, platelet count 398, MCV 79.6, INR is 1.2. Sodium 145, potassium 3.4, chloride 107, bicarbonate 28.0, BUN 13, creatinine 1.0, magnesium 1.9, AST 37, ALT 29, CK 187, troponin 0.04. BNP is 355. IMAGING STUDIES: CT angiography of the chest on 04/11/2018: No definite pulmonary embolus is seen. There is some heterogeneity to the more distal pulmonary arteries, which appears largely technical, diffuse mosaic attenuation pattern likely secondary to diffuse interstitial disease. Edema could have this appearance. Heart size appears to be enlarged. Nonspecific 2.3 cm mass at the anterior aspect of the left lower lobe of the liver. This likely represents a cyst or hemangioma. CARDIOLOGY STUDIES: Echocardiogram read by myself shows a dilated cardiomyopathy with ejection fraction 20%, PA pressure 47 mmHg, mild to moderate MR. DIAGNOSES: 1. Dilated cardiomyopathy. 2. Nonischemic cardiomyopathy. 3. Decompensated congestive heart failure. 4. Noncompliance due to lack of funding. 5. Mild to moderate mitral regurgitation. 6. Moderate pulmonary hypertension. 7. Microcytic anemia. 8. Hypokalemia. 9. Elevated white count. 10. Decompensated congestive heart failure. DISCUSSION: The patient is mildly volume overloaded by BNP. He appears comfortable. Certainly it makes sense to restart his diuretics and maintain him on his baseline Coreg and amlodipine. He is not clear why the patient is not on an angiotensin converting enzyme inhibitor. I will add that. Recommend to continue to follow the trends in his BMP, BNP as well. MD LUPE Del Cid/ , 07:07 PM , 08:03 PM
[2018-04-17] MEDS: MAGNESIUM SULFATE 1 GM PREMIX 100 ML IV SCH ×2 (20:24→22:42)
[2018-04-17] MEDS: HEPARIN SODIUM - SQ 10,000 UNITS/ML VIAL SQ SCH (22:47)
[2018-04-17] MEDS: POLYSACCHARIDE IRON COMPLEX 150 MG CAP PO SCH (22:47)
[2018-04-18] VITALS: BP 122/78; PULSE 94; RESP 20; TEMP 96.5; O2SAT 98
[2018-04-18 04:00] VITALS: BP 114/88; PULSE 82; RESP 20; TEMP 96; O2SAT 96
[2018-04-18] MEDS: HEPARIN SODIUM - SQ 10,000 UNITS/ML VIAL SQ SCH (05:25)
[2018-04-18 05:54] LABS: AUTOMATED NEUTROPHIL # 9.6 TH/MM3 (1.8-7.7); BASOPHIL # 0.5 TH/MM3 (0-0.2); BASOPHIL % 3.7 % (0.0-2.0); EOSINOPHIL # 0.2 TH/MM3 (0-0.4); EOSINOPHIL % 1.2 % (0.0-4.0); HEMATOCRIT 40.8 % (39.0-51.0); HEMOGLOBIN 13.2 GM/DL (13.0-17.0); LYMPH % 20.4 % (9.0-44.0); LYMPHOCYTE # 2.8 TH/MM3 (1.0-4.8); MEAN CORPUSCULAR HEMOGLOBIN 25.6 PG (27.0-34.0); MEAN CORPUSCULAR HGB CONC 32.4 % (32.0-36.0); MEAN PLATELET VOLUME 8.9 FL (7.0-11.0); MONO % 4.5 % (0.0-8.0); MONOCYTE # 0.6 TH/MM3 (0-0.9); NEUT % 70.2 % (16.0-70.0); PLATELET COUNT 343 TH/MM3 (150-450); RED BLOOD COUNT 5.16 MIL/MM3 (4.50-5.90); RED CELL DISTRIBUTION WIDTH 17.8 % (11.6-17.2); WHITE BLOOD COUNT 13.7 TH/MM3 (4.0-11.0)
[2018-04-18 06:06] LABS: CALCIUM 8.3 MG/DL (8.5-10.1)
[2018-04-18 06:07] LABS: BICARBONATE 30.5 MEQ/L (21.0-32.0); MAGNESIUM 2.3 MG/DL (1.5-2.5)
[2018-04-18 06:10] LABS: CREATININE 1.1 MG/DL (0.60-1.30)
[2018-04-18 08:00] VITALS: BP 121/57; PULSE 80; RESP 20; TEMP 97.8; O2SAT 95
[2018-04-18] MEDS: POLYSACCHARIDE IRON COMPLEX 150 MG CAP PO SCH (08:27)
[2018-04-18] MEDS: POTASSIUM CHLORIDE 10 MEQ CONTROLLED RELEASE TAB PO SCH (08:28)
[2018-04-18] MEDS: CARVEDILOL 12.5 MG TAB PO SCH (08:28)
[2018-04-18] MEDS: FUROSEMIDE 20 MG/2 ML VIAL IV SCH (08:29)
[2018-04-18] MEDS: SODIUM CHLORIDE 0.9% FLUSH 10 ML FLUSH IV FLUSH SCH (08:31)
[2018-04-18] MEDS ORDERED: SPIRONOLACTONE 25 MG TAB PO SCH (09:00)
[2018-04-18] MEDS ORDERED: LISINOPRIL 5 MG TAB PO SCH (09:00)
--- NOTE | 2018-04-18 10:17 | HHI.PR ---
Subjective Remarks Follow-up acute on chronic systolic CHF April 18, 2018-patient seen and examined, reported improvement of shortness of breath as well as lower extremity swelling. Looking for discharge home today Objective Vitals Vital Signs Date Time Temp Pulse Resp B/P (MAP) Pulse Ox O2 Delivery O2 Flow Rate FiO2 04/18/18 08:00 97.8 80 20 121/57 (78) 95 04/18/18 04:00 96.0 82 20 114/88 (97) 96 04/18/18 00:00 96.5 94 20 122/78 (93) 98 04/17/18 22:00 92 04/17/18 20:00 97.1 91 20 123/69 (87) 94 04/17/18 19:45 95 21 04/17/18 15:48 96.6 90 18 132/81 (98) 96 04/17/18 11:43 96.7 85 18 129/80 (96) 95 I/O 04/17/18 04/17/18 04/17/18 04/18/18 04/18/18 04/18/18 07:00 15:00 23:00 07:00 15:00 23:00 Intake Total 358 ml 600 ml 840 ml Output Total 1350 ml 2800 ml 2075 ml Balance -992 ml -2200 ml -1235 ml Intake Oral 358 ml 600 ml 840 ml Output Urine Total 1350 ml 2800 ml 2075 ml # Voids 5 # Bowel Movements 0 0 Result Diagram: 04/18/18 0520 04/18/18 0500 Objective Remarks GENERAL: NAD SKIN: Warm and dry. HEAD: Normocephalic. EYES: No scleral icterus. No injection or drainage. NECK: Supple, trachea midline. No JVD or lymphadenopathy. CARDIOVASCULAR: Regular rate and rhythm without murmurs, gallops, or rubs. RESPIRATORY: Breath sounds equal bilaterally. No accessory muscle use. GASTROINTESTINAL: Abdomen soft, non-tender, nondistended. MUSCULOSKELETAL: No cyanosis, or edema. BACK: Nontender without obvious deformity. No CVA tenderness. A/P Problem List: (1) CHF exacerbation ICD Code: I50.9 - Heart failure, unspecified (2) Cardiomyopathy ICD Code: I42.9 - Cardiomyopathy, unspecified Assessment and Plan This is a pleasant 32-year-old male patient with a known medical history of hypertension and CHF and cardiomyopathy who presented to the ED with complaints of shortness of breath and worsening bilateral lower extremity edema. Patient states that he ran out of his diuretic a week ago and his symptoms started a few days after. Dilated systolic congestive heart failure in exacerbation Dilated cardiomyopathy - Last echocardiogram showing EF less than 20% with left ventricular systolic function with severely reduced and severe dilated left ventricle. - Chest x-ray showing cardiomegaly. Repeat 2D echo with EF of less than 20% and without any evidence of pericardial effusion. - d/c torsemide 10 mg twice daily at home, - Patient placed on Lasix 20 mg twice daily. Continue potassium supplement. - Continue home carvedilol and Norvasc as well as lisinopril 2.5 mg and Aldactone 25 mg twice daily prescribed by cardiology -Appreciate input from cardiology - Continue cardiac telemetry. Monitor for any arrhythmias. Hypokalemia: Resolved with potassium replacement Iron deficiency anemia: Hemoglobin 11.9/hematocrit 37.5. High RDW. Iron studies low. Place on supplementation. Hypertension:continue home Norvasc. DVT prophylaxis: SCDs. Ambulation. Discharge Planning Discharge patient to home Condition on discharge: Improved Regular Diet as tolerated Ad Vidya activity Rx written: See EMR Follow-up with primary care physician in 1 week Cardiology follow-up outpatient Sina Raya MD April 18, 2018 10:17
[2018-04-18] MEDS ORDERED: CARV12.5 PO (10:18)
[2018-04-18] MEDS ORDERED: AMLO10 PO (10:22)
[2018-04-18] MEDS ORDERED: LISI-519 PO (10:22)
[2018-04-18] MEDS ORDERED: FURO1TAB62 PO (10:22)
[2018-04-18] MEDS ORDERED: SPIR25 PO (10:22)
[2018-04-18 12:00] VITALS: BP 107/73; PULSE 85; RESP 20; TEMP 96.9; O2SAT 97
--- NOTE | 2018-04-18 14:43 | PD.CARD.PN ---
Subjective Subjective Remarks states he feels much better, approaching baseline Objective Medications Current Medications Medications (Trade) Dose Ordered Sig/Brittany Route Start Time Stop Time Status Last Admin (NS Flush) 2 ml UNSCH PRN IV FLUSH 04/16/18 22:15 (NS Flush) 2 ml BID IV FLUSH 04/17/18 09:00 04/18/18 08:31 (Lasix Inj) 20 mg BID@,18 IV 04/16/18 22:15 04/18/18 08:29 (KCl) 10 meq BID PO 04/16/18 22:15 04/18/18 08:28 (Norvasc) 10 mg DAILY PO 04/17/18 09:00 04/18/18 08:28 (Coreg) 25 mg BID PO 04/16/18 22:15 04/18/18 08:28 (Nu-Iron) 150 mg Q12HR PO 04/17/18 21:00 04/18/18 08:27 (Prinivil) 2.5 mg DAILY PO 04/18/18 09:00 04/18/18 08:28 (Aldactone) 25 mg BID@18 PO 04/18/18 09:00 04/18/18 08:27 (Heparin Inj) 5,000 units Q8HR SQ 04/17/18 22:00 04/18/18 05:25 Vital Signs / I&O GENERAL: SKIN: Warm and dry. HEAD: Normocephalic. EYES: No scleral icterus. No injection or drainage. NECK: Supple, trachea midline. No JVD or lymphadenopathy. CARDIOVASCULAR: Regular rate and rhythm without murmurs, gallops, or rubs. RESPIRATORY: Breath sounds equal bilaterally. No accessory muscle use. GASTROINTESTINAL: Abdomen soft, non-tender, nondistended. MUSCULOSKELETAL: No cyanosis, or edema. BACK: Nontender without obvious deformity. No CVA tenderness. Vital Signs Date Time Temp Pulse Resp B/P (MAP) Pulse Ox O2 Delivery O2 Flow Rate FiO2 04/18/18 12:00 96.9 85 20 107/73 (84) 97 04/18/18 08:00 97.8 80 20 121/57 (78) 95 04/18/18 04:00 96.0 82 20 114/88 (97) 96 04/18/18 00:00 96.5 94 20 122/78 (93) 98 04/17/18 22:00 92 04/17/18 20:00 97.1 91 20 123/69 (87) 94 04/17/18 19:45 95 21 04/17/18 15:48 96.6 90 18 132/81 (98) 96 I/O 04/17/18 04/17/18 04/17/18 04/18/18 04/18/18 04/18/18 07:00 15:00 23:00 07:00 15:00 23:00 Intake Total 358 ml 600 ml 840 ml Output Total 1350 ml 2800 ml 2075 ml Balance -992 ml -2200 ml -1235 ml Intake Oral 358 ml 600 ml 840 ml Output Urine Total 1350 ml 2800 ml 2075 ml # Voids 5 # Bowel Movements 0 0 Laboratory Laboratory Tests Test 04/18/18 05:00 04/18/18 05:20 Blood Urea Nitrogen 18 MG/DL Creatinine 1.10 MG/DL Random Glucose 89 MG/DL Calcium Level 8.3 MG/DL Magnesium Level 2.3 MG/DL Sodium Level 141 MEQ/L Potassium Level 4.7 MEQ/L Chloride Level 105 MEQ/L Carbon Dioxide Level 30.5 MEQ/L Anion Gap 6 MEQ/L Estimat Glomerular Filtration Rate 95 ML/MIN White Blood Count 13.7 TH/MM3 Red Blood Count 5.16 MIL/MM3 Hemoglobin 13.2 GM/DL Hematocrit 40.8 % Mean Corpuscular Volume 79.0 FL Mean Corpuscular Hemoglobin 25.6 PG Mean Corpuscular Hemoglobin Concent 32.4 % Red Cell Distribution Width 17.8 % Platelet Count 343 TH/MM3 Mean Platelet Volume 8.9 FL Neutrophils (%) (Auto) 70.2 % Lymphocytes (%) (Auto) 20.4 % Monocytes (%) (Auto) 4.5 % Eosinophils (%) (Auto) 1.2 % Basophils (%) (Auto) 3.7 % Neutrophils # (Auto) 9.6 TH/MM3 Lymphocytes # (Auto) 2.8 TH/MM3 Monocytes # (Auto) 0.6 TH/MM3 Eosinophils # (Auto) 0.2 TH/MM3 Basophils # (Auto) 0.5 TH/MM3 CBC Comment DIFF FINAL Differential Comment B-Type Natriuretic Peptide 196 PG/ML Assessment and Plan Problem List: (1) CHF exacerbation ICD Codes: I50.9 - Heart failure, unspecified (2) Cardiomyopathy ICD Codes: I42.9 - Cardiomyopathy, unspecified Assessment and Plan 1.) Non ischemic cardiomyopathy - becoming euvolemic, [id number]; on omt, ok to dc from cv standpoint on coreg, lisinopril, aldactone and lasix Problem Qualifiers (1) CHF exacerbation: Qualified Codes: I50.23 - Acute on chronic systolic (congestive) heart failure (2) Cardiomyopathy: Qualified Codes: I42.0 - Dilated cardiomyopathy Stu Solo MD April 18, 2018 14:43
== END 2018-04-18 15:30 | disposition home or self-care (01) ==
LOC: PHEDDLT 20:57 → PH3B 20:58
PROVIDERS: ADMIT Hospitalist; ATTEND Hospitalist
DX: I50.23 Acute on chronic systolic (congestive) heart failure (principal); R06.02 Shortness of breath; R60.0 Localized edema; I42.0 Dilated cardiomyopathy; I11.0 Hypertensive heart disease with heart failure; R14.0 Abdominal distension (gaseous); Z87.891 Personal history of nicotine dependence; E66.9 Obesity, unspecified; I25.5 Ischemic cardiomyopathy; E87.6 Hypokalemia; D50.9 Iron deficiency anemia, unspecified; R06.01 Orthopnea; Z79.899 Other long term (current) drug therapy; Z91.19 Patient's noncompliance with other medical treatment and regimen; I34.0 Nonrheumatic mitral (valve) insufficiency; I27.20 Pulmonary hypertension, unspecified
CPT/HCPCS: 71045; 80048; 80053; 83735; 83880; 84484; 85025; 85610; 85730; 93005; 93308; 96365; 96366; 96372; 96374; 96375; 96376; 99285; G0378; J1644; J1940; J3475